=== PATIENT | female | born 1945 | race Caucasian/White ===

== ENCOUNTER 2021-01-25 19:42 | Emergency (ER) | payer MEDICARE, OTHER ==
[~2021-01-25] VITALS: Ht 154.9 cm; Wt 79.0 kg
[2021-01-25 21:16] VITALS: BP 160/66
[2021-01-25] MEDS ORDERED: ACET650T37 MT (22:37)
== END 2021-01-26 00:20 | disposition home or self-care (01) ==
LOC: ER 19:42
DX: S63.592A Other specified sprain of left wrist, initial encounter (principal); W11.XXXA Fall on and from ladder, initial encounter; Y93.89 Activity, other specified; Y92.89 Other specified places as the place of occurrence of the external cause; Y99.8 Other external cause status; E11.9 Type 2 diabetes mellitus without complications; E78.00 Pure hypercholesterolemia, unspecified; I10 Essential (primary) hypertension; Z88.0 Allergy status to penicillin
CPT/HCPCS: 73110; 99283